=== PATIENT | male | born 1955 | race Caucasian/White ===

== ENCOUNTER 2018-07-27 11:50 | Day surgery (SDC) | payer MEDICARE ==
[~2018-07-27] VITALS: Ht 185.4 cm; Wt 109.1 kg
[~2018-07-27 11:50] MED LIST: LEVO25TA45 PO
[2018-07-27] MEDS ORDERED: LACTATED RINGERS 1,000 ML IV SCH ×2 (12:32→17:06)
[2018-07-27 12:46] VITALS: BP 188/94
[2018-07-27] MEDS ORDERED: BUPIVACAINE/PF-EPI 0.5% 1:200K ONE (14:49)
[2018-07-27] MEDS ORDERED: MIDAZOLAM 1 MG/ML, 2ML ONE (14:59)
[2018-07-27] MEDS ORDERED: FENTANYL PF 100 MCG/2ML ONE ×2 (14:59→16:56)
[2018-07-27] MEDS ORDERED: PROPOFOL 10 MG/ML, 20ML ONE (15:01)
[2018-07-27] MEDS ORDERED: CEFAZOLIN 1,000 MG ONE (15:01)
[2018-07-27] MEDS ORDERED: DEXAMETHASONE 4 MG/ML, 1ML ONE (15:01)
[2018-07-27] MEDS ORDERED: KETOROLAC 30 MG/1 ML ONE (15:01)
[2018-07-27] MEDS ORDERED: ONDANSETRON 2MG/ML, 2ML ONE (15:01)
[2018-07-27] MEDS ORDERED: hydrALAzine 20 MG/ML, 1ML IV PRN (15:30)
[2018-07-27] MEDS ORDERED: ACETAMINOPHEN 325 MG TABLET PO PRN (15:30)
[2018-07-27] MEDS ORDERED: LABETALOL 5MG/ML, 20ML IV PRN (15:30)
[2018-07-27] MEDS ORDERED: ALBUTEROL SULFATE 2.5 MG/3 ML NPPB PRN (15:30)
[2018-07-27] MEDS ORDERED: OXYcodone 5 MG/5 ML ORAL.SOL UDC PO PRN (15:30)
[2018-07-27] MEDS ORDERED: DIAZEPAM 5 MG/ML, 2ML IVPush PRN (15:30)
[2018-07-27] MEDS ORDERED: HYDROmorphone 2 MG/ML, 1ML IVPush PRN (15:30)
[2018-07-27] MEDS ORDERED: KETOROLAC 30 MG/1 ML IV PRN (15:30)
[2018-07-27] MEDS ORDERED: PROMETHAZINE 25 MG/ML, 1ML IV PRN (15:30)
[2018-07-27] MEDS ORDERED: MEPERIDINE/PF 25MG/0.5ML IVPush PRN (15:30)
[2018-07-27] MEDS ORDERED: FENTANYL PF 250 MCG/5ML ONE (16:09)
[2018-07-27] MEDS: FENTANYL PF 100 MCG/2ML IV PRN ×2 (17:06→17:14)
[2018-07-27] MEDS ORDERED: OXYcodone 5 MG/5 ML ORAL.SOL UDC ONE (17:15)
[2018-07-27] MEDS ORDERED: ACETAMINOPHEN 650 MG/20.3 ML UDC ONE (17:15)
[2018-07-27] MEDS ORDERED: morphine SULFATE 10 MG/ML, 1ML IVPush PRN (17:30)
[2018-07-27] MEDS ORDERED: ONDANSETRON 2MG/ML, 2ML IVPush PRN (17:30)
[2018-07-27] MEDS ORDERED: PROMETHAZINE 25 MG/ML, 1ML IM PRN (17:30)
[2018-07-27] MEDS ORDERED: hydrALAzine 20 MG/ML, 1ML ONE (17:43)
== END 2018-07-27 21:00 | disposition home or self-care (01) ==
LOC: OUT 11:50 → 4NOR 18:11 → OUT 21:00
PROVIDERS: ATTEND Surgery
DX: K40.20 Bilateral inguinal hernia, without obstruction or gangrene, not specified as recurrent (principal); Z72.89 Other problems related to lifestyle
CPT/HCPCS: 49505; 93005; C1781; J0360; J0690; J1100; J1885; J2250; J2405; J2704; J3010; J7120; G0378